=== PATIENT | male | born 1995 | race Caucasian/White ===

== ENCOUNTER 2022-05-03 12:53 | Emergency (ER) | payer MEDICAID ==
[~2022-05-03] VITALS: Ht 185.4 cm; Wt 95.3 kg
--- NOTE | 2022-05-03 13:06 | NUR ---
TO ER BED 4, C/O LLQ PAIN AND LEFT TESTICULAR PAIN X 3 DAYS, AAOX3, BREATHING EVEN AND NON LABORED, CONNECTED TO MONITOR, AWAITING MD CHINO
[2022-05-03 13:12] VITALS: BP 128/65
--- NOTE | 2022-05-03 14:15 | NUR ---
URINE COLLECTED AND SENT TO LAB
[2022-05-03 14:17] LABS: BASOPHILS % (AUTO) 0.1 % (0.0-2.0); EOSINOPHILS % (AUTO) 1.6 % (0.0-6.0); HEMATOCRIT 41 % (39-51); LYMPHOCYTES # (AUTO) 1.2 K/uL (0.8-4.8); LYMPHOCYTES % (AUTO) 22.6 % (20.0-44.0); MEAN CORPUSCULAR HGB CONC 34 g/dl (31.0-36.0); MEAN CORPUSCULAR VOLUME 85 fL (80-96); MONOCYTES # (AUTO) 0.5 K/uL (0.1-1.30); MONOCYTES % (AUTO) 8.5 % (2.0-12.0); NEUTROPHILS # (AUTO) 3.7 K/uL (1.8-8.9); NEUTROPHILS % (AUTO) 67.2 % (43.0-81.0); PLATELET COUNT (AUTO) 268 K/uL (150-450); RED BLOOD CELL COUNT(AUTO) 4.82 MIL/uL (4.5-6.0); WHITE BLOOD COUNT (AUTO) 5.4 K/uL (4.3-11.0)
[2022-05-03 14:30] LABS: CALCIUM, SERUM 9.6 mg/dL (8.5-10.1); CREATININE 0.9 mg/dL (0.6-1.3); POTASSIUM 3.4 mmol/L (3.5-5.1)
[2022-05-03] MEDS ORDERED: IBUP-1955 PO (15:23)
[2022-05-03] MEDS ORDERED: IBUPROFEN 600 MG TABLET ONE (15:30)
[2022-05-03] MEDS: IBUPROFEN 600 MG TABLET PO ONE (15:35)
--- NOTE | 2022-05-03 15:35 | NUR ---
IV removed. Catheter intact and site benign. Pressure and 4x4 applied to site. No bleeding noted.Patient discharged to home in stable condition. Written and verbal after care instructions given. Patient verbalizes understanding of instruction.
[2022-05-03 15:39] LABS: BILIRUBIN,URINE NEGATIVE (NEGATIVE); LEUKOCYTE ESTERASE ,URINE NEGATIVE (NEGATIVE); NITRITE, URINE NEGATIVE (NEGATIVE); PROTEIN,URINE NEGATIVE (NEGATIVE); UGLUCOSE NEGATIVE (NEGATIVE); UROBILINOGEN,URINE 0.2 EU/dL (0.2)
[2022-05-03 15:48] LABS: COLOR,URINE YELLOW (YELLOW)
== END 2022-05-03 15:37 | disposition home or self-care (01) ==
LOC: ER 12:59
DX: R10.32 Left lower quadrant pain (principal); N50.812 Left testicular pain
CPT/HCPCS: 36415; 76870-TC; 80048-TC; 85025-TC; 87491; 87591